=== PATIENT | female | born 1995 | race Caucasian/White ===

== ENCOUNTER 2018-06-22 00:10 | Inpatient (IN) | payer OTHER ==
[2018-06-22] MEDS ORDERED: ELECTROLYTE-148 SOLN 500 ML IV ONE (00:58)
[2018-06-22] MEDS ORDERED: ELECTROLYTE-148 SOLN 1,000 ML IV SCH (01:00)
[2018-06-22] MEDS ORDERED: NALOXONE HCL 0.4 MG/ML VIAL IVPUSH PRN (01:06)
--- NOTE | 2018-06-22 01:06 | HP ---
Past Medical History - Admission Chief Complaint: Uterine contractions History of Present Illness: 22yo @ 40wks here with uterine contractions. No VB/LOF. +FM. GBS negative; refused Tdap PNC at [facility] in the [place] (records reviewed). 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: No: Alzheimer's, CVA, Dementia, Migraine, Multiple Sclerosis, Peripheral Neuropathy, Parkinson's, Seizure, Syncope, TIA, Vertigo, Other Cardiovascular: No: AFIB, Aneurysm, Aortic Insufficiency, Aortic Stenosis, CAD, CHF, Deep Vein Thrombosis, HTN, Hyperlipdemia, IN, Mitral Insufficiency, Mitral Stenosis, Murmur, Pulmonary Hypertension, Other Pulmonary: Yes: Asthma Gastrointestinal: No: Ascites, Cancer, Constipation, Crohn's Disease, Diverticulitis, Diverticulosis, Esophageal Varices, Gastritis, GERD, GI Bleed, Hemorrhoids, Hiatal Hernia, Inflamatory Bowel Disease, Irritable Bowel Disease, Pancreatitis, Peptic Ulcer Disease, Ulcerative Colitis, Other Hepatobiliary: No: Cirrhosis, Cholelithiasis, Cholecystitis, Choledocholithiasis , Hepatitis A, Hepatitis B, Hepatitis C, Other Renal/: No: Renal Failure, Renal Inusuff, BPH, Cancer, Hematuria, Hemodialysis , Neurogenic Bladder, Renal Calculi, UTI, Other Reproductive: No: Ectopic , Endometriosis, Fibroids, PID, Polycystic Ovary Syndrome, Postmenopausal, Other ...: 2 ...Para: 1 ...Term: 1 ...: 0 ...Spon : 0 ...Induced : 0 Heme/Onc: Yes: Anemia Infectious Disease: No: AIDS, C-Diff, Herpes Zoster, HIV, MRSA, STD's, Tuberculosis, VREF, Other Psych: No: Addictions, Anxiety, Bipolar, Depression, Panic, Psychosis, Schizophrenia, Other Musculoskeletal: No: Bursitis, Chronic low back pain, Hemiparesis, Hemiplegia, Osteoarthritis, Paraplegia, Other Rheumatology: No: Fibromyalgia, Gout, Lupus, Rheumatoid Arthritis, Sarcoidosis, Vasculitis, Other ENT: No: Allergic Rhinitis, Sinusitis, Other Endocrine: No: Genesee's Disease, Cristy's Disease, Diabetes Insipidus, Diabetes Mellitus, Hyperparathyroidism, Hyperthyroidism, Hypothyroidism, Osteopenia, SIADH, Other Dermatology: No: Basal Cell, Cellulitis, Eczema, Melanoma, Psoriasis, Squamous Cell, Other - Past Surgical History Past Surgical History: Yes: None Hx Myomectomy: No Hx Transabdominal Cerclage: No - Advance Directives Advance Directives: No: Living Will, Health Care Proxy, DNR, Organ Donor, Tissue Donor, MOLST - Alcohol/Substance Use Hx Alcohol Use: No History of Substance Use: reports: None - Social History Usual Living Arrangement: Yes: With Parent History of Recent Travel: No Home Medications - Allergies Allergies/Adverse Reactions: Allergies Allergy/AdvReac Type Severity Reaction Status Date / Time No Known Drug Allergies Allergy Verified 03/06/18 21:55 Physical Exam - Maternity Constitutional: Yes: Well Nourished, No Distress, Calm Eyes: Yes: WNL, Conjunctiva Clear, EOM Intact - Abdominal Exam/OB Number of Fetuses: Single Presentation: Vertex Contractions: Yes Regularity: Irregular Intensity: Mod/Strong Monitor Mode: External Heart Rate Location: [facility] Category: I Accelerations: Non-Uniform Decelerations: None - Vaginal Exam/OB Vaginal Bleediing: No Speculum Exam: No Dilatation (cm): 4 Effacement (%): 100 Amniotic Membrane Status: Intact Presentation: Vertex/Position Station: -3 - Physical Exam Edema: No Problem List - Problems (1) Uterine contractions Code(s): WZW1635 - Assessment/Plan 22yo @ 40.0wks by LMP/sono here in labor Admit to L&D NPO, clears Cat I tracing Epidural for pain AROM/pitocin prn Anticipate MEGHANA Lara MD
[2018-06-22] MEDS ORDERED: LIDO 2%/EPI 1:200000 PRESRVFRE (20 ML SDVIAL) ONE ×2 (01:10→03:15)
[2018-06-22] MEDS ORDERED: BUPIVACAINE HCL/PF 0.25% (2.5MG/ML) 10 ML VIAL ONE ×2 (01:10→03:28)
[2018-06-22] MEDS ORDERED: FENTANYL/BUPIVACAINE/NS/PF - PCEA - 50 ML DISP.SYRIN EP SCH (01:15)
[2018-06-22] MEDS ORDERED: FENTANYL/BUPIVACAINE/NS/PF - PCEA - 50 ML DISP.SYRIN EP ONE ×2 (01:21→04:44)
[2018-06-22 01:36] LABS: BASO % 0.5 % (0-2.0); EOS % 0.2 % (0-4.5); HEMATOCRIT 28.5 % (32.4-45.2); HEMOGLOBIN 8.9 GM/dL (10.7-15.3); LYMPH % 13.9 % (8-40); MCH 22.3 pg (25.7-33.7); MCHC 31.1 g/dl (32.0-36.0); MEAN CELL VOLUME 71.8 fl (80-96); MEAN PLT VOLUME 8.5 fl (7.5-11.1); MONO % 6.2 % (3.8-10.2); NEUT % 79.2 % (42.8-82.8); PLATELET COUNT 336 K/MM3 (134-434); RBC 3.97 M/mm3 (3.60-5.2); RDW 16.6 % (11.6-15.6); WHITE BLOOD COUNT 8.7 K/mm3 (4.0-10.0)
[2018-06-22 01:45] LABS: CALCIUM 8.8 mg/dL (8.5-10.1); CREATININE 0.5 mg/dL (0.55-1.3)
[2018-06-22 03:59] LABS: INR 0.92 (0.83-1.09); PROTHROMBIN TIME (PATIENT) 10.9 SEC (9.7-13.0)
[2018-06-22 04:02] LABS: ACTIVATED PTT 25.3 SECONDS (25.2-36.5)
[2018-06-22] MEDS ORDERED: LIDOCAINE HCL 1% PRESERVATIVE FREE - 30ML VIAL ONE (05:12)
[2018-06-22] MEDS ORDERED: OXYTOCIN 20 UNITS in 0.9% NS 20 UNIT/1,000 ML INFUS.BAG IV ONE (05:12)
[2018-06-22] MEDS ORDERED: ACETAMINOPHEN 325 MG TABLET (FP) PO PRN (05:46)
[2018-06-22] MEDS ORDERED: WITCH HAZEL 50% (TUCKS) 40 PAD/JAR PAD TP PRN (05:46)
[2018-06-22] MEDS ORDERED: METHYLERGONOVINE MALEATE 0.2 MG/1 ML AMP IM PRN (05:46)
[2018-06-22] MEDS ORDERED: BENZOCAINE 20% 57 GM BOTTLE TP PRN (05:46)
[2018-06-22] MEDS ORDERED: BENZOCAINE 28 GM HEMORRHOIDAL OINTMENT TP PRN (05:46)
[2018-06-22] MEDS ORDERED: IBUPROFEN 600 MG TABLET (FP) PO PRN (05:46)
[2018-06-22] MEDS ORDERED: BISACODYL 10 MG SUPP.RECT RC PRN (05:46)
[2018-06-22] MEDS ORDERED: OXYTOCIN 20 UNITS in 0.9% NS 20 UNIT/1,000 ML INFUS.BAG IV SCH (06:00)
[2018-06-22] MEDS: FERROUS SO4 325 MG TABLET (FP) PO SCH ×3 (08:00→17:28)
[2018-06-22] MEDS: PRENATAL VITAMINS W/ FOLIC ACID TABLET (FP) PO SCH (10:00)
[2018-06-23 07:14] LABS: BASO % 0.5 % (0-2.0); EOS % 0.2 % (0-4.5); HEMOGLOBIN 8.5 GM/dL (10.7-15.3); LYMPH % 19.3 % (8-40); MCH 22.7 pg (25.7-33.7); MCHC 31.5 g/dl (32.0-36.0); MEAN PLT VOLUME 8.2 fl (7.5-11.1); MONO % 5.5 % (3.8-10.2); NEUT % 74.5 % (42.8-82.8); PLATELET COUNT 324 K/MM3 (134-434); RBC 3.76 M/mm3 (3.60-5.2); RDW 16.9 % (11.6-15.6); WHITE BLOOD COUNT 9.8 K/mm3 (4.0-10.0)
[2018-06-23] MEDS: FERROUS SO4 325 MG TABLET (FP) PO SCH ×3 (08:40→18:03)
[2018-06-23] MEDS: PRENATAL VITAMINS W/ FOLIC ACID TABLET (FP) PO SCH (10:10)
[2018-06-23 10:31] VITALS: TEMP 98.5
--- NOTE | 2018-06-23 11:26 | PN ---
Post Progress Note Post Day: 1 Type of Delivery: Vital Signs: Vital Signs Temperature 98.5 F 06/23/18 10:00 Pulse Rate 89 06/23/18 10:00 Respiratory Rate 18 06/23/18 10:00 Blood Pressure 99/55 L 06/23/18 10:00 O2 Sat by Pulse Oximetry (%) 98 06/22/18 06:30 Uterus: Yes: Fundus below umbilicus Abdomen/GI: Yes: Abdomen soft Lochia: Yes: Rubra Lochia, amount: Small Extremities: Yes: Calves non-tender Perineum: Yes: Intact Activity: Ambulating (Pain controlled. ) - Labs Labs: CBC WBC 9.8 K/mm3 (4.0-10.0) 06/23/18 06:00 RBC 3.76 M/mm3 (3.60-5.2) 06/23/18 06:00 Hgb 8.5 GM/dL (10.7-15.3) L 06/23/18 06:00 Hct 27.0 % (32.4-45.2) L 06/23/18 06:00 MCV 72.0 fl (80-96) L 06/23/18 06:00 MCH 22.7 pg (25.7-33.7) L 06/23/18 06:00 MCHC 31.5 g/dl (32.0-36.0) L 06/23/18 06:00 RDW 16.9 % (11.6-15.6) H 06/23/18 06:00 Plt Count 324 K/MM3 (134-434) 06/23/18 06:00 MPV 8.2 fl (7.5-11.1) 06/23/18 06:00 Absolute Neuts (auto) 7.3 K/mm3 (1.5-8.0) 06/23/18 06:00 Neutrophils % 74.5 % (42.8-82.8) 06/23/18 06:00 Lymphocytes % 19.3 % (8-40) D 06/23/18 06:00 Monocytes % 5.5 % (3.8-10.2) 06/23/18 06:00 Eosinophils % 0.2 % (0-4.5) 06/23/18 06:00 Basophils % 0.5 % (0-2.0) 06/23/18 06:00 Nucleated RBC % 0 % (0-0) 06/23/18 06:00 Problem List - Problems (1) Uterine contractions Code(s): [id number] - Assessment/Plan 22yo s/p , PPD#1 Routine PP care OOB, ambulate Labs reviewed, anemia, iron BID Anticipate d/c to home PPD#2 Jazmine Lara MD
[2018-06-23] MEDS ORDERED: SENNOSIDES/DOCUSATE COMBO (SENNA PLUS) TABLET (UD) PO PRN (22:00)
--- NOTE | 2018-06-24 09:03 | DS ---
Physical Examination Vital Signs: Vital Signs Temperature 98.5 F 06/23/18 20:34 Pulse Rate 99 H 06/23/18 20:34 Respiratory Rate 20 06/23/18 20:34 Blood Pressure 109/85 06/23/18 20:34 O2 Sat by Pulse Oximetry (%) 98 06/22/18 06:30 Constitutional: Yes: Well Nourished, No Distress, Calm Eyes: Yes: WNL, Conjunctiva Clear, EOM Intact HENT: Yes: WNL, Atraumatic, Normocephalic Neck: Yes: WNL, Supple, Trachea Midline Cardiovascular: Yes: WNL, Regular Rate and Rhythm Respiratory: Yes: WNL, Regular, CTA Bilaterally Gastrointestinal: Yes: WNL, Normal Bowel Sounds Musculoskeletal: Yes: WNL Extremities: Yes: WNL Edema: No Integumentary: Yes: WNL Neurological: Yes: WNL, Alert, Oriented ...Motor Strength: WNL Psychiatric: Yes: WNL Labs: CBC, BMP 06/23/18 06:00 06/22/18 01:00 Discharge Summary Reason For Visit: LABOR Current Active Problems Uterine contractions (Acute) Procedures: Principal: Hospital Course: Patient presented in active labor She had an uncomplicated She met all milestones She was discharged home on PPD#2 M. MD Marco Condition: Stable - Instructions Diet, Activity, Other Instructions: Regular Diet return to clinic in 4-6 weeks for check. call [facility] for appointment. [phone] Referrals: Katina Lara MD [Staff Physician] - Disposition: HOME - Home Medications Comprehensive Discharge Medication List: Ambulatory Orders Ferrous Sulfate 325 tab PO DAILY 06/22/18 19 Tablet 1 tab PO DAILY 06/22/18 Ibuprofen 600 mg PO Q6H PRN #30 tablet 06/23/18
[2018-06-24 10:03] VITALS: BP 106/66; PULSE 79
[2018-06-24] MEDS: PRENATAL VITAMINS W/ FOLIC ACID TABLET (FP) PO SCH (10:29)
[2018-06-24] MEDS: FERROUS SO4 325 MG TABLET (FP) PO SCH ×2 (10:29→13:12)
--- NOTE | 2018-06-27 15:19 | PATH ---
Surgical Pathology Report Patient Name: LEONARDO ROWLEY Med. Rec. #: [id number] /Age/Gender: 1995 (Age: 22) / F Account: [id number] Location: [facility] OBS/ELECTRIC RELAY TESTER Taken: 06/22/2018 Received: 06/24/2018 Reported: 06/27/2018 Physicians: Nafisa Barrios Specimen(s) Received PLACENTA Clinical History , 40 weeks Final Diagnosis PLACENTA, VAGINAL DELIVERY: MATURE THIRD TRIMESTER PLACENTA (WEIGHT: 430 G) SHOWING SMALL PLACENTAL INFARCT (6 MM). MILD ACUTE CHORIOAMNIONITIS. TRIVESSEL UMBILICAL CORD. Electronically Signed Deena Samano M.D. Gross Description The specimen is received fresh labeled placenta and is a 430 gram, 18.5 x 14 x 2.5 cm. placenta with attached membranes and umbilical cord. The attached membranes are appear translucent and inserted marginally. The eccentrically attached umbilical cord measures 25 cm. in length and averages 1.5 cm. in diameter. No true knots or strictures are identified. Cut surface of the umbilical cord reveals 3 vessels. The surface is ness-blue with minimal fibrin deposition and appropriate caliber vessels. The maternal surface is red-brown with focal defects. Sectioning reveals predominantly red-brown, spongy parenchyma. A focal white, fibrotic area measuring 6 x 5 x 3 mm is noted within the placental disc. [employer] sections are submitted in three cassettes as follows: 1- membrane rolls and umbilical cord; 2-3- full thickness sections of placenta with fibrotic area. AE/06/24/2018 ebram/06/24/2018
== END 2018-06-24 13:15 | disposition home or self-care (01) | DRG 560 ==
LOC: JDEL 00:10 → JLDR 00:45 → J3W 08:41
PROVIDERS: ADMIT Obstetrics & Gynecology; ATTEND Obstetrics & Gynecology
PROC: 10E0XZZ Delivery of Products of Conception, External Approach (ICD-10-PCS; principal; 2018-06-22)
DX: O48.0 Post-term pregnancy (principal); Z3A.40 40 weeks gestation of pregnancy; Z37.0 Single live birth
CPT/HCPCS: 36415; 36600; 59409; 80048; 82803; 85025; 85610; 85730; 86593; 86850; 86900; 86901

== ENCOUNTER 2021-10-28 18:10 | Emergency (ER) | payer OTHER ==
[2021-10-28 18:25] VITALS: BP 113/72; PULSE 73; RESP 19; TEMP 97.9; BMI 30.1
[2021-10-28] MEDS ORDERED: KETOROLAC TROMETHAMINE 30 MG/1 ML VIAL IM ONE (18:54)
[2021-10-28] MEDS ORDERED: ACETAMINOPHEN/CAFFEINE/BUTALBITAL 1 TAB PO ONE (18:54)
[2021-10-28] MEDS ORDERED: METOCLOPRAMIDE HCL 10 MG TABLET (FP) PO ONE ×2 (18:55→19:11)
[2021-10-28] MEDS ORDERED: KETOROLAC TROMETHAMINE 30 MG/1 ML VIAL ONE (19:12)
[2021-10-28] MEDS ORDERED: ACETAMINOPHEN/CAFFEINE/BUTALBITAL 1 TAB ONE (19:12)
== END 2021-10-28 20:55 | disposition home or self-care (01) ==
LOC: JERFT 18:10 → JER 18:10 → JERFT 20:55
PROC: 3E0233Z Introduction of Anti-inflammatory into Muscle, Percutaneous Approach (ICD-10-PCS; principal; 2021-10-28)
DX: G44.209 Tension-type headache, unspecified, not intractable (principal)
CPT/HCPCS: 70450-TC; 99284-25

== ENCOUNTER 2022-04-26 12:45 | Emergency (ER) | payer OTHER ==
[2022-04-26 13:08] VITALS: BP 125/54; PULSE 79; RESP 18; TEMP 98; BMI 30.6
[2022-04-26] MEDS ORDERED: LIDOCAINE 5% TOPICAL PATCH TP ONE (13:55)
[2022-04-26] MEDS ORDERED: LIDOCAINE 5% TOPICAL PATCH ONE (14:13)
[2022-04-26] MEDS ORDERED: KETOROLAC TROMETHAMINE 30 MG/1 ML VIAL IM ONE (15:28)
[2022-04-26] MEDS ORDERED: METHOCARBAMOL 500 MG TABLET PO ONE (15:28)
[2022-04-26] MEDS ORDERED: METHOCARBAMOL 500 MG TABLET ONE (15:56)
[2022-04-26] MEDS ORDERED: KETOROLAC TROMETHAMINE 30 MG/1 ML VIAL ONE (15:57)
== END 2022-04-26 16:11 | disposition home or self-care (01) ==
LOC: JERFT 12:45
DX: S46.812A Strain of other muscles, fascia and tendons at shoulder and upper arm level, left arm, initial encounter (principal); V44.5XXA Car driver injured in collision with heavy transport vehicle or bus in traffic accident, initial encounter
CPT/HCPCS: 36415; 73030-TC-LT-FY; 84703; 99284-25